=== PATIENT | female | born 1975 | race Two or more races ===

== ENCOUNTER 2022-05-25 09:40 | Day surgery (SDC) | payer OTHER ==
[~2022-05-25 09:40] MED LIST: ZIAC 10/6.25 MG1 TAB PO
== END 2022-05-25 18:25 | disposition home or self-care (01) ==
LOC: CIR.AMB 09:40
PROVIDERS: ATTEND Obstetrics & Gynecology
DX: N93.9 Abnormal uterine and vaginal bleeding, unspecified (principal); N85.01 Benign endometrial hyperplasia; N72 Inflammatory disease of cervix uteri; N92.6 Irregular menstruation, unspecified; I10 Essential (primary) hypertension; Z20.822 Contact with and (suspected) exposure to COVID-19

== ENCOUNTER 2022-08-29 10:04 | Inpatient (IN) | payer OTHER ==
[~2022-08-29] VITALS: Ht 170.2 cm; Wt 81.6 kg
[2022-09-02] MEDS ORDERED: COLACE100 MG PO (08:55)
[2022-09-02] MEDS ORDERED: TRAM1TAB98 PO (08:56)
[2022-09-02] MEDS ORDERED: KETO10TA2 PO (08:57)
== END 2022-09-02 09:11 | disposition home or self-care (01) | DRG 743 ==
LOC: O/R 08-31 05:56 → OB/GYN 08-31 05:56 → SURH 08-31 10:15 → OB/GYN 08-31 16:41
PROVIDERS: ADMIT Obstetrics & Gynecology; ATTEND Obstetrics & Gynecology
PROC: 0USG8ZZ Reposition Vagina, Via Natural or Artificial Opening Endoscopic (ICD-10-PCS; 2022-08-31)
PROC: 0UT98ZZ Resection of Uterus, Via Natural or Artificial Opening Endoscopic (ICD-10-PCS; principal; 2022-08-31 13:45)
DX: D25.1 Intramural leiomyoma of uterus (principal); N72 Inflammatory disease of cervix uteri; Z20.822 Contact with and (suspected) exposure to COVID-19